=== PATIENT | female | born 1970 | race Caucasian/White ===

== ENCOUNTER → 2018-08-04 14:16 | Outpatient (CLI) | payer OTHER, SELFPAY ==
[2018-08-04 16:33] LABS: TSH w/ Reflex to FT4 4.86 uIU/mL (0.47-4.68)
[2018-08-04 17:57] LABS: Free T4, Direct Thyroxine 1.07 ng/dL (0.78-2.19)
== END ==
PROVIDERS: PCP Family Medicine; Visit Provider Family Medicine
DX: E03.9 Hypothyroidism, unspecified (principal)
CPT/HCPCS: 36415; 84439; 84443

== ENCOUNTER → 2018-09-24 14:06 | Outpatient (CLI) | payer OTHER, SELFPAY ==
[2018-09-24 15:25] LABS: TSH w/ Reflex to FT4 5.44 uIU/mL (0.47-4.68)
[2018-09-24 16:54] LABS: Free T4, Direct Thyroxine 1.01 ng/dL (0.78-2.19)
== END ==
PROVIDERS: PCP Family Medicine; Visit Provider Family Medicine
DX: E05.90 Thyrotoxicosis, unspecified without thyrotoxic crisis or storm (principal)
CPT/HCPCS: 36415; 84439; 84443

== ENCOUNTER → 2018-12-01 07:42 | Outpatient (CLI) | payer OTHER, SELFPAY ==
--- NOTE | 2018-12-01 07:43 | DI.MG.S_ITS ---
BILATERAL DIGITAL SCREENING MAMMOGRAM 3D/2D WITH CAD: 12/01/2018 CLINICAL: Routine screening. Comparison is made to exams dated: 05/23/2012 mammogram, 05/18/2011 mammogram, and 10/15/2006 mammogram - [facility]. The tissue of both breasts is heterogeneously dense. This may lower the sensitivity of mammography. Current study was also evaluated with a Computer Aided Detection (CAD) system. No significant masses, calcifications, or other findings are seen in either breast. There has been no significant interval change. IMPRESSION: NEGATIVE There is no mammographic evidence of malignancy. A 1 year screening mammogram is recommended. This exam was interpreted at Station ID: [id number]. NOTE: For mammograms, a report in lay terms will be sent to the patient. Approximately 15% of breast malignancies will not be visualized mammographically. In the management of a palpable breast mass, a negative mammogram must not discourage biopsy of a clinically suspicious lesion. Electronically Signed By: Jose Antonio cope/shant:12/01/2018 11:26:56 letter sent: Normal Exam ACR BI-RADS Category 1: Negative 3341F
== END ==
PROVIDERS: PCP Family Medicine; Visit Provider Family Medicine
DX: Z12.31 Encounter for screening mammogram for malignant neoplasm of breast (principal)
CPT/HCPCS: 77063; 77067

== ENCOUNTER → 2019-01-28 16:55 | Outpatient (CLI) | payer OTHER, SELFPAY ==
[2019-01-28 18:02] LABS: TSH w/ Reflex to FT4 3.97 uIU/mL (0.47-4.68)
== END ==
PROVIDERS: PCP Family Medicine; Visit Provider Family Medicine
DX: E03.9 Hypothyroidism, unspecified (principal)
CPT/HCPCS: 36415; 84443

== ENCOUNTER → 2020-06-02 16:41 | Outpatient (CLI) | payer OTHER, SELFPAY ==
[2020-06-02 18:28] LABS: TSH w/ Reflex to FT4 2.68 uIU/mL (0.47-4.68)
== END ==
PROVIDERS: PCP Family Medicine; Referring Provider Family Medicine; Visit Provider Family Medicine
DX: E03.9 Hypothyroidism, unspecified (principal)
CPT/HCPCS: 36415; 84443

== ENCOUNTER 2021-09-11 12:20 | Emergency (ER) | payer OTHER, SELFPAY ==
[2021-09-11 12:27] VITALS: BP 137/61; PULSE 78; RESP 14; TEMP 36.7; O2SAT 99; BMI 27.3
--- NOTE | 2021-09-11 12:33 | DI.RAD.S_ITS ---
PROCEDURE: XR KNEE LT 3V INDICATIONS: knee pain after jumping TECHNIQUE: 3 views of the knee were acquired. COMPARISON: [facility], , KNEE 3V LEFT, 02/13/2008, 18:00. FINDINGS: Bones: There is prior ACL repair with anatomic left knee alignment. No gross hardware loosening or failure. Mild tricompartmental osteoarthritis is seen more prominent in medial femoral tibial compartment. Soft tissues: No significant joint effusion. No suspicious soft tissue calcifications. IMPRESSION: Prior ACL repair. Anatomic left knee alignment. No gross hardware complication. Mild tricompartmental osteoarthritis more prominent in medial femoral tibial compartment. No acute fracture or dislocation. No significant joint effusion. Dictated by: Robert Sloan M.D. on 09/11/2021 at 13:05 Approved by: Robert Sloan M.D. on 09/11/2021 at 13:07
--- NOTE | 2021-09-11 20:11 | ED_ITS ---
HPI - Extremity Injury (Lower) <Barbara Sigala PA-C - Last Filed: 09/11/21 20:18> General Chief Complaint: Extremity Injury, Lower Stated Complaint: injured knee Left Time Seen by Provider: 09/11/21 15:27 Source: patient Mode of arrival: Ambulatory History of Present Illness HPI Narrative: Patient states that her knee buckled 3 days ago when she was walking, she heard some snapping sounds. Patient endorses pain in the medial aspect of the knee and popliteal region. Patient also endorses pain when flexing the knee. Patient endorses she is still able to bear weight and walk on the knee. Patient denies numbness, tingling, weakness. Related Data Home Medications Medication Instructions Recorded Confirmed multivitamin (Multiple Vitamins) 1 tab PO QDAY #0 03/04/17 09/11/21 Previous Rx's Medication Instructions Recorded gabapentin 100 mg capsule See Rx Instructions PO BID #270 cap 06/07/20 levothyroxine 100 mcg tablet See Rx Instructions .ROUTE 08/09/21 .COMPLEX #90 tab Allergies Allergy/AdvReac Type Severity Reaction Status Date / Time No Known Drug Allergies Allergy Verified 09/11/21 12:32 Review of Systems <Barbara Sigala PA-C - Last Filed: 09/11/21 20:18> Review of Systems ROS Unobtainable: All systems reviewed & are unremarkable except as noted in HPI and below Constitutional Constitutional: Denies chills, Denies fatigue, Denies fever(s), Denies frequent falls, Denies lethargy and Denies weakness Eyes Eyes: Denies change in vision, Denies eye discharge, Denies irritation and Denies loss of vision ENT Ears, Nose, Mouth, and Throat: Denies change in voice, Denies dizziness, Denies neck pain, Denies sore throat and Denies throat swelling Cardiovascular Cardiovascular: Denies chest pain, Denies irregular heart rhythm, Denies lightheadedness, Denies palpitations, Denies dyspnea, Denies dyspnea on exertion and Denies orthopnea Respiratory Respiratory: Denies cough, Denies dyspnea, Denies dyspnea on exertion and Denies wheezing Gastrointestinal Gastrointestinal: Denies abdominal pain, Denies change in bowel habits, Denies diarrhea, Denies nausea and Denies vomiting Genitourinary Genitourinary: Denies hematuria, Denies flank pain, Denies urinary incontinence and Denies urinary urgency Musculoskeletal Musculoskeletal: Denies back pain, Denies muscle weakness, Denies neck pain, Denies numbness and Denies tingling Comments: Left knee pain Integumentary/Breasts Skin/Breast: Denies pruritus, Denies erythema, Denies rash and Denies wounds Neurologic Neurologic: Denies behavioral changes, Denies confusion, Denies dizziness, Denies frequent falls, Denies loss of vision, Denies numbness, Denies tingling and Denies weakness Psychiatric Psychiatric: Denies anxiety, Denies behavioral changes, Denies confusion, Denies depression, Denies homicidal ideation and Denies suicidal ideation Endocrine Endocrine: Denies fatigue, Denies flushing and Denies palpitations Hematologic/Lymphatic Hematologic/Lymphatic: Denies easy bruising Allergic/Immunologic Allergic/Immunologic: Denies urticaria, Denies throat swelling and Denies wheezing Patient History <Barbara Sigala PA-C - Last Filed: 09/11/21 20:18> Medical History Arthritis Chicken pox Hypothyroidism Irregular menstrual cycle Overweight (BMI 25.0-29.9) Seborrheic keratosis Spontaneous vaginal delivery Surgical History S/P ACL repair Family History Brother Age: 54 Skin cancer Father Coronary artery disease, angina presence unspecified, unspecified vessel or lesion type, unspecified whether [place] or transplanted heart Hypertension High cholesterol Grandfather Heart disease Grandmother Heart disease Mother Age: 78 Smoker Emphysema, unspecified Heart disease Grandfather Heart disease Grandmother Heart disease Social History marital status: number of children: 2 household members: family lives independently: Yes education level: master's degree 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[employer]) Smoking Status: Never smoker alcohol intake: current (rare) substance use type: does not use Smoking Status: Never smoker alcohol intake frequency: 0-2 drinks per day Substance Use Type: does not use Exam <Barbara Sigala PA-C - Last Filed: 09/11/21 20:18> Initial Vital Signs Initial Vital Signs: Vital Signs Temperature 98.1 F 09/11/21 12:27 Pulse Rate 78 09/11/21 12:27 Respiratory Rate 14 09/11/21 12:27 Blood Pressure 137/61 09/11/21 12:27 Pulse Oximetry 99 09/11/21 12:27 Const General: cooperative, healthy appearing and comfortable [facility] Head: normal to inspection Eyes General: appearance normal, both eyes and all related structures Neck Neck: normal visual inspection Resp Effort & Inspection: normal respiratory effort Auscultation: clear to auscultation bilaterally Cardio Rate: regular rate Rhythm: regular rhythm Skin General: no rashes or lesions noted Neuro General: patient alert, patient awake and patient oriented x3 Extrem Other: Tenderness to palpation of medial aspect of left knee and popliteal region. No swelling, deformity, bruising appreciated. Patient is neurovascularly intact. Gait is normal. <Patricia Watkins DO - Last Filed: 09/12/21 13:49> Initial Vital Signs Initial Vital Signs: Vital Signs Temperature 98.1 F 09/11/21 12:27 Pulse Rate 78 09/11/21 12:27 Respiratory Rate 14 09/11/21 12:27 Blood Pressure 137/61 09/11/21 12:27 Pulse Oximetry 99 09/11/21 12:27 Course <Barbara Sigala PA-C - Last Filed: 09/11/21 20:18> Orders Ordered: ED Orders 09/11/21 12:33 XR knee LT 3V Stat Vital Signs Vital signs: Vital Signs - 8 hr 09/11/21 12:27 Temperature 98.1 F Pulse Rate 78 Respiratory Rate 14 Blood Pressure 137/61 Pulse Oximetry 99 <Patricia Watkins DO - Last Filed: 09/12/21 13:49> Orders Ordered: ED Orders 09/11/21 12:33 XR knee LT 3V Stat Vital Signs Vital signs: Vital Signs - 8 hr 09/11/21 12:27 Temperature 98.1 F Pulse Rate 78 Respiratory Rate 14 Blood Pressure 137/61 Pulse Oximetry 99 MDM - Extremity Injury (Lower) <WILLI Vang Last Filed: 09/11/21 20:18> Imaging Data Extremity x-ray #1: Radiologist's Impression: PROCEDURE:? XR KNEE LT 3V ? INDICATIONS:? knee pain after jumping ? TECHNIQUE:? 3 views of the knee were acquired.? ? COMPARISON:? [facility], CR, KNEE 3V LEFT, 02/13/2008, 18:00. ? FINDINGS:? ? Bones:? There is prior ACL repair with anatomic left knee alignment.? No gross hardware loosening or failure.? Mild tricompartmental osteoarthritis is seen more prominent in medial femoral tibial compartment. ? Soft tissues:? No significant joint effusion.? No suspicious soft tissue calcifications.? IMPRESSION:? Prior ACL repair.? Anatomic left knee alignment.? No gross hardware complication.? Mild tricompartmental osteoarthritis more prominent in medial femoral tibial compartment.? No acute fracture or dislocation.? No significant joint effusion. ? ? Dictated by: Robert Sloan M.D. on 09/11/2021 at 13:05 ? ? Approved by: Robert Sloan M.D. on 09/11/2021 at 13:07 ? MDM Narrative Medical decision making narrative: Patient states that her knee buckled 3 days ago when she was walking, she heard some snapping sounds. Concern for fractures versus dislocations versus sprain/strain. Will order x-rays. Will reassess. X-ray negative for acute findings. Patient's symptoms likely due to sprain/strain. Discharged patient home with ED return precautions and PCP, ortho follow-up. Patient verbalized understanding. Discharge Plan Departure Patient Disposition: Home Clinical Impression: Acute knee pain Instructions: DI for Knee Sprain Activity Restrictions/Additional Instructions: You were evaluated in the ED today for left-sided knee pain. Your x-ray did not show any evidence of fractures or dislocations. Your symptoms are likely due to a knee sprain. You may continue to rest, ice/warmth, use an Romie compression bandage, elevate your knee. You may continue to take Tylenol and ibuprofen for symptoms. Please follow-up with your PCP, consider physical therapy. If your symptoms do not resolve, you may follow-up with [facility] at [phone]. Return to the ED if you have worsening symptoms, numbness, tingling, weakness. Prescriptions: No Action gabapentin 100 mg capsule See Rx Instructions PO BID Qty: 270 3RF Rx Instructions: Take 1 tablet in the morning and 2 tablets at bedtime PO twice a day; multivitamin [Multiple Vitamins] 1 EACH tablet 1 tab PO QDAY Qty: 0 0RF levothyroxine 100 mcg tablet See Rx Instructions .ROUTE .COMPLEX Qty: 90 0RF Dose Instruction: take 1 tablet by mouth daily Rx Instructions: take 1 tablet by mouth daily Referrals: Danyelle Canada DO [Primary Care Provider] - <Patricia Watkins DO - Last Filed: 09/12/21 13:49> Cosign ED Attending Ayseature Attestation: I was immediately available in the department for consultation. Documentation has been reviewed.
== END 2021-09-11 16:57 | disposition home or self-care (01) ==
PROVIDERS: Emergency Provider Student in an Organized Health Care Education/Training Program; PCP Family Medicine
DX: M25.562 Pain in left knee (principal)
CPT/HCPCS: 73562; 99283

== ENCOUNTER → 2021-10-06 09:38 | Outpatient (CLI) | payer OTHER, SELFPAY ==
--- NOTE | 2021-10-06 | DI.MRI.S_ITS ---
PROCEDURE: MR KNEE LT WO CON INDICATIONS: Sprain of anterior cruciate ligament of left knee, TECHNIQUE: Noncontrast sagittal PD fast spin echo and T2 fast spin echo with fat saturation, sagittal 3-D FLASH with fat saturation; coronal T1 spin echo and PD fast spin echo with fat saturation, and axial PD fast spin echo with fat saturation through the knee. COMPARISON: [facility], MR, KNEE WITHOUT CONTRAST, 12/18/2012, 18:15. FINDINGS: Image quality: Excellent. Menisci: Deficiency of the medial, posterior horn with surfacing signal, compatible with meniscal tear. The lateral meniscus appears intact. Cruciate ligaments: T2 hyperintense signal within the anterior cruciate ligament graft, decreased in caliber compared to the prior study. The posterior cruciate ligament is intact. Medial structures: The medial collateral ligament appears intact. The visualized portions of the pes anserinus tendons appear normal. Lateral structures: The lateral collateral ligament complex appears intact. The popliteus tendon appears normal. The iliotibial band appears normal. Anterior structures: The quadriceps and patellar tendons appear intact. Patellar alignment is normal. No femoral trochlear dysplasia or ventral trochlear prominence. No edema in the infrapatellar fat pad. Bones and cartilage: T2 hyperintense signal underlying the patellar apex/lateral facet, most consistent with osteochondral injury, measuring 4.9 mm patchy T2 hyperintense/T1 hypointense signal in the posterior aspect of the lateral tibial plateau, compatible with contusion. No distinct fracture line. The cartilage of the medial and lateral femorotibial compartments, as well as the patellofemoral compartment, appears normal in thickness. Joint space: Small knee joint fluid. A 3.4 x 3.3 x 7 cm T2 hyperintense signal is seen in the popliteal fossa, most consistent with a Mayfield cyst new line. Normal appearing synovial plicae are incidentally noted. IMPRESSION: 1. Posterior horn, medial meniscal tear. 2. Edema within the ACL graft, which may reflect acute injury versus degeneration. 3. Small joint effusion. 4. Contusion in the posterior aspect of the lateral tibial plateau. 5. Cystic-appearing lesion in the popliteal fossa, compatible with a Mayfield cyst. 6. Osteochondral injury of the patella as detailed above. 7. Patellar chondromalacia. Dictated by: Srini Crawley M.D. on 10/06/2021 at 10:41 Approved by: Srini Crawley M.D. on 10/06/2021 at 10:56
== END ==
PROVIDERS: PCP Family Medicine; Referring Provider Orthopaedic Surgery; Visit Provider Orthopaedic Surgery
DX: S83.512A Sprain of anterior cruciate ligament of left knee, initial encounter (principal); S83.242A Other tear of medial meniscus, current injury, left knee, initial encounter; M25.40 Effusion, unspecified joint; M22.42 Chondromalacia patellae, left knee
CPT/HCPCS: 73721

== ENCOUNTER → 2021-11-09 16:26 | Outpatient (CLI) | payer OTHER, SELFPAY ==
[2021-11-09 17:29] LABS: Add Manual Diff / Slide Review NO; Basophils Absolute Auto 0 /uL (0-100); Basophils Percent Auto 0.8 % (0-2); Eosinophils Absolute Auto 100 /uL (0-450); Eosinophils Percent Auto 2.6 % (2-4); Hematocrit 37.7 % (36-46); Hemoglobin 12.8 g/dL (12.0-16.0); Lymphocytes Absolute Auto 1300 /uL (1100-4500); Lymphocytes Percent Auto 23.8 % (25-40); Mean Corpuscular Hemoglobin 30.1 PG (26-34); Mean Corpuscular Volume 88.6 fL (80-100); Monocytes Absolute Auto 400 /uL (0-900); Monocytes Percent Auto 6.4 % (3-14); Neutrophils Absolute Auto 3700 /uL (1500-7000); Neutrophils Percent Auto 66.4 % (50-75); Platelet Count 281 X10^3/uL (150-400); Red Blood Cell Count 4.26 X10^6/uL (4.0-5.2); Red Cell Distribution Width 13.3 % (11.6-14.8); White Blood Cell Count 5.5 X10^3/uL (4.5-11.0)
[2021-11-09 18:00] LABS: Alanine Aminotransferase 20 IU/L (<35); Albumin 4.5 g/dL (3.5-5.0); Albumin Globulin Ratio 1.6 (1.0-2.8); Alkaline Phosphatase 64 U/L (38-126); Aspartate Aminotransferase 36 IU/L (14-36); BUN Creatinine Ratio 23.7 (6-22); Bilirubin Total 0.5 mg/dL (0.2-1.3); Blood Urea Nitrogen 27 mg/dL (7-17); Calcium 9.7 mg/dL (8.4-10.2); Carbon Dioxide 29 mmol/L (22-32); Chloride 107 mmol/L (98-107); Cholesterol 177 mg/dL (140-199); Estimated Glomerular Filt Rate 50.5 mL/min (>60); Globulin 2.9 g/dL (1.7-4.1); Glucose 99 mg/dL (70-100); HDL Cholesterol 64 mg/dL (40-60); HEMOLYSIS < 15 (0-50); LDL Cholesterol Calculated 99 mg/dL (<100); Potassium 4.1 mmol/L (3.4-5.1); Sodium 139 mmol/L (137-145); Total Protein 7.4 g/dL (6.3-8.2); Triglycerides 70 mg/dL (35-150)
[2021-11-09 18:32] LABS: Thyroid Stimulating Hormone 3.21 uIU/mL (0.47-4.68)
[2021-11-09 18:36] LABS: Rubella Antibody IgG 48.5 IU/mL (>15)
[2021-11-10 04:40] LABS: Rubeola Measles IgG 27.5 AU/mL (Immune >16.4)
== END ==
PROVIDERS: PCP Family Medicine; Referring Provider Family Medicine; Visit Provider Family Medicine
DX: E03.9 Hypothyroidism, unspecified (principal); Z01.84 Encounter for antibody response examination; Z92.29 Personal history of other drug therapy
CPT/HCPCS: 36415; 80053; 80061; 84443; 85025; 86735; 86762; 86765

== ENCOUNTER → 2021-12-16 12:19 | Outpatient (CLI) | payer OTHER, SELFPAY ==
[2021-12-16 13:05] LABS: Alanine Aminotransferase 22 IU/L (<35); Albumin 4.8 g/dL (3.5-5.0); Albumin Globulin Ratio 1.7 (1.0-2.8); Alkaline Phosphatase 67 U/L (38-126); Aspartate Aminotransferase 36 IU/L (14-36); BUN Creatinine Ratio 23.7 (6-22); Bilirubin Total 0.5 mg/dL (0.2-1.3); Blood Urea Nitrogen 32 mg/dL (7-17); Calcium 9.7 mg/dL (8.4-10.2); Carbon Dioxide 24 mmol/L (22-32); Chloride 105 mmol/L (98-107); Estimated Glomerular Filt Rate 41.5 mL/min (>60); Globulin 2.8 g/dL (1.7-4.1); Glucose 86 mg/dL (70-100); HEMOLYSIS < 15 (0-50); Potassium 4.7 mmol/L (3.4-5.1); Sodium 142 mmol/L (137-145); Total Protein 7.6 g/dL (6.3-8.2)
== END ==
PROVIDERS: PCP Family Medicine; Referring Provider Family Medicine; Visit Provider Family Medicine
DX: N28.9 Disorder of kidney and ureter, unspecified (principal)
CPT/HCPCS: 36415; 80053

== ENCOUNTER → 2021-12-30 11:38 | Outpatient (CLI) | payer OTHER, SELFPAY ==
[2021-12-30 11:55] LABS: Appearance Urine UA CLEAR; Bilirubin Urine UA NEGATIVE (NEGATIVE); Color Urine UA YELLOW; Glucose Urine UA TRACE g/dL (Negative); Ketones Urine UA NEGATIVE (NEGATIVE); Leukocyte Esterase Urine UA NEGATIVE (NEGATIVE); Nitrite Urine UA NEGATIVE (Negative); Occult Blood Urine UA NEGATIVE (Negative); Protein Urine UA NEGATIVE (Negative); Urobilinogen Urine UA 0.2 E.U./dL (0.2)
[2021-12-30 12:07] LABS: Bacteria Urine Occasional (0-1); Culture Indicated Urine Cult Not Indicated; Mucus Urine 1+ (Negative); RBC Urine 0-1/HPF (0-5/HPF); Squamous Epithelial Cell Urine 0-1 /HPF (0-5/HPF); WBC Urine 0-1/HPF (0-5/HPF); pH Urine UA 6.5 (4.5-8.0)
== END ==
PROVIDERS: PCP Family Medicine; Referring Provider Family Medicine; Visit Provider Family Medicine
DX: R39.9 Unspecified symptoms and signs involving the genitourinary system (principal)
CPT/HCPCS: 81001

== ENCOUNTER → 2022-01-25 10:25 | Outpatient (CLI) | payer OTHER, SELFPAY ==
[2022-01-25 11:13] VITALS: BMI 28.8
--- NOTE | 2022-01-25 14:48 | DIET.CONS ---
Dietary Consultation Note Assessment: 51y [address] visit for help with abnormal weight gain (+15# in 18mo) and hypothyroidism. Pt has 6 visits to use through [place]. 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 Pt weight stable most of life, most comfortable at 170#. Pt gained 5# in early covid when gym shut down. Does not know if weight gain is from increased muscle mass, menopause, or excessive caloric intake. Pt with poor sleep quality, having some bloating in evenings and hot flashes several times per night which keep her up for 30 minutes with each occurrence. Pt also scheduled for renal ultrasound as past two labs this year showing elevated BUN and Creatinine and low eGFR. Pt endorses not drinking enough water and relying on supplemental protein products (bars and powders). Since nurse called with f/u labs, pt has been drinking 64oz plain water daily. Ht: 5'8 Wt: 190# BMI: 28.8 UBW: 170# Usual Day: thyroid meds and gabapentin right away Coffee c scoop protein powder B: 2 eggs cooked in cast iron c avocado oil, sometimes overnight oats pure protein bar L (2pm): starving by this point: leftovers (protein veg, carb like couscous and black rice) cooked veggies sometimes salads 350kcals pure protein bar gym after work 630 eating rest of meal from 7pm to bedtime+ D: palm size rotisserie chicken, flank steak, chicken burgers, sometimes black or kidney beans bedtime snack is tupperware of leftovers asleep by midnight egg scrambles on weekends Protein Intake: 2-3 scoops protein powder 24g each 2-3 pure protein bars 20g each 2 eggs 6g each palm size protein 30-40g RD Impression: Pt with excellent physical activity and nutrition experiencing some weight gain and bloating likely related to consuming majority of kcals at night, irregular and fast eating, overconsumption of sugar alcohols, respectively. Pt renal function may be related to excessive protein intake and inadequate hydration as pt consuming twice the recommended protein intake and endorses not getting enough water, often reliant on coffee for fluids. Nutrition Diagnosis: abnormal weight gain r/t multifactorial aeb pt +15# in 18mo despite regular physical activity and good nutrition, pt reports erratic eating, consuming most calories after 7pm, eating to avoid evening work, hx hypothyroid. Interventions: 1. Introduced pt to hunger scale. Instructed pt to eat at 3 and stop at 7 whenever possible. Problem solve barriers to attaining good meal timing. 2. Discussed appropriate protein intake daily and possible effects to kidneys. Discussed limiting pro powder to 2 scoops and pro bars to 2/d. 3. Talked about habit of eating to avoid evening work. Discussed option of fizzy water or tea as calorie free way to break up worktime. 4. Educated pt on sugar alcohols effects of bloating. Pt consuming 14-21g/d in protein bars which likely contributing to bloating. 5. Discussed hot flashes, provided pt handout from [employer] database on Black Cohosh including drug and food interactions. 6. Discussed importance of hitting fiber targets for day to help with satiety and good digestion. Encouraged pt to incorporate lentils into diet. Provided Power Bowl and Lentil soup recipes. EER: 25g fiber, 80-100g protein, 1800kcals Monitoring/Evaluations: f/u in 4w Electronically Signed by: Tayla Goel 01/25/22 14:48 Clinical Dietitian [id number] [place] [address]
== END ==
PROVIDERS: PCP Family Medicine; Referring Provider Family Medicine; Visit Provider Family Medicine
DX: R63.5 Abnormal weight gain (principal); E03.9 Hypothyroidism, unspecified; Z71.3 Dietary counseling and surveillance; Z68.28 Body mass index [BMI] 28.0-28.9, adult
CPT/HCPCS: 97802

== ENCOUNTER → 2022-02-02 08:08 | Outpatient (CLI) | payer OTHER, SELFPAY ==
--- NOTE | 2022-02-02 08:09 | DI.US.S_ITS ---
PROCEDURE: US RENAL COMPLETE INDICATIONS: abnormal renal labs TECHNIQUE: Real-time scanning was performed of the kidneys and bladder, with image documentation. COMPARISON: None. FINDINGS: Kidneys: Kidneys are normal in size. Right kidney measures 10.2 cm long; left kidney measures 10.7 cm long. Right renal cortical thickness is 1.6 cm; left renal cortical thickness is 2 cm. Renal cortical echotexture is within normal limits. No hydronephrosis or nephrolithiasis. No suspicious solid mass lesions. Bladder: Pre-void bladder volume is 133 mL. Post-void residual is 0 mL. Pre-void images demonstrate no intraluminal masses or stones. On pre-void images, both ureteral jets are noted with color Doppler interrogation. (Of note, ureteral jets may not be detectable in up to 25% of cases due to insufficient differences in specific gravity between ureteral and bladder urine). Miscellaneous: No free pelvic fluid. IMPRESSION: No sonographic abnormality identified. Dictated by: Howard Donohue M.D. on 02/02/2022 at 22:02 Approved by: Howard Donohue M.D. on 02/02/2022 at 22:04
== END ==
PROVIDERS: PCP Family Medicine; Referring Provider Family Medicine; Visit Provider Family Medicine
DX: R39.9 Unspecified symptoms and signs involving the genitourinary system (principal)
CPT/HCPCS: 76770

== ENCOUNTER → 2023-04-26 09:11 | Outpatient (CLI) | payer OTHER, SELFPAY ==
[2023-04-26 09:56] LABS: Add Manual Diff / Slide Review NO; Basophils Absolute Auto 100 /uL (0-100); Basophils Percent Auto 2.2 % (0-2); Eosinophils Absolute Auto 300 /uL (0-450); Eosinophils Percent Auto 7.7 % (2-4); Hematocrit 33.6 % (36-46); Hemoglobin 11.2 g/dL (12.0-16.0); Lymphocytes Absolute Auto 1200 /uL (1100-4500); Lymphocytes Percent Auto 34.7 % (25-40); Mean Corpuscular HGB Conc 33.3 % (30-36); Mean Corpuscular Hemoglobin 29.4 PG (26-34); Mean Corpuscular Volume 88.3 fL (80-100); Monocytes Absolute Auto 300 /uL (0-900); Monocytes Percent Auto 8.5 % (3-14); Neutrophils Absolute Auto 1600 /uL (1500-7000); Neutrophils Percent Auto 46.9 % (50-75); Platelet Count 280 X10^3/uL (150-400); Red Cell Distribution Width 13.6 % (11.6-14.8); White Blood Cell Count 3.4 X10^3/uL (4.5-11.0)
[2023-04-26 10:12] LABS: Alanine Aminotransferase 24 IU/L (<35); Albumin Globulin Ratio 1.5 (1.0-2.8); Alkaline Phosphatase 68 U/L (38-126); Aspartate Aminotransferase 36 IU/L (14-36); BUN Creatinine Ratio 20.6 (6-22); Bilirubin Total 0.3 mg/dL (0.2-1.3); Blood Urea Nitrogen 27 mg/dL (7-17); Calcium 8.6 mg/dL (8.4-10.2); Carbon Dioxide 26 mmol/L (22-32); Chloride 107 mmol/L (98-107); Estimated Glomerular Filt Rate 49 mL/min (>60); Globulin 2.7 g/dL (1.7-4.1); Glucose 86 mg/dL (70-100); HEMOLYSIS < 15 (0-50); Potassium 4.4 mmol/L (3.4-5.1); Sodium 139 mmol/L (137-145); Total Protein 6.7 g/dL (6.3-8.2)
[2023-04-26 10:26] LABS: Free T3, Triiodothyronine Free 4.13 pg/mL (2.77-5.27); Free T4, Direct Thyroxine 1.34 ng/dL (0.78-2.19)
[2023-04-26 10:39] LABS: Thyroid Stimulating Hormone 6.91 uIU/mL (0.47-4.68)
== END ==
PROVIDERS: PCP Physician Assistant; Referring Provider Physician Assistant; Visit Provider Physician Assistant
DX: E03.9 Hypothyroidism, unspecified (principal); E66.3 Overweight; N92.0 Excessive and frequent menstruation with regular cycle; Z12.11 Encounter for screening for malignant neoplasm of colon
CPT/HCPCS: 36415; 80053; 84439; 84443; 84481; 85025

== ENCOUNTER → 2023-05-18 11:23 | Outpatient (CLI) | payer OTHER, SELFPAY ==
--- NOTE | 2023-05-18 11:24 | DI.MG.S_ITS ---
BILATERAL DIGITAL SCREENING MAMMOGRAM 3D/2D WITH CAD: 05/18/2023 CLINICAL: Routine screening. Comparison is made to exams dated: 12/01/2018 mammogram, 05/23/2012 mammogram, and 05/18/2011 mammogram - [facility]. Both breasts are heterogeneously dense, which may obscure small masses (category c / 51-75% glandular tissue). Current study was also evaluated with a Computer Aided Detection (CAD) system. No significant masses, calcifications, or other findings are seen in either breast. There has been no significant interval change. IMPRESSION: NEGATIVE There is no mammographic evidence of malignancy. A 1 year screening mammogram is recommended. Based on the Tyrer Cuzick model (a risk assessment model) the patient's lifetime risk is 11.0% and her 10 year risk is 2.8%. According to the ACR, ACS, and NCCN guidelines, an annual breast MRI exam along with mammogram is recommended if the patient's lifetime risk is 20% or greater. This exam was interpreted at Station ID: [id number]. NOTE: For mammograms, a report in lay terms will be sent to the patient. Approximately 15% of breast malignancies will not be visualized mammographically. In the management of a palpable breast mass, a negative mammogram must not discourage biopsy of a clinically suspicious lesion. Electronically Signed By: Jose Antonio cope/shant:05/20/2023 07:39:05 letter sent: Normal Exam ACR BI-RADS Category 1: Negative 3341F
== END ==
PROVIDERS: PCP Physician Assistant; Referring Provider Physician Assistant; Visit Provider Physician Assistant
DX: Z12.31 Encounter for screening mammogram for malignant neoplasm of breast (principal)
CPT/HCPCS: 77063; 77067

== ENCOUNTER → 2023-07-10 10:13 | Outpatient (CLI) | payer OTHER, SELFPAY ==
[2023-07-10 12:38] LABS: TSH w/ Reflex to FT4 0.63 uIU/mL (0.47-4.68)
== END ==
PROVIDERS: PCP Physician Assistant; Referring Provider Physician Assistant; Visit Provider Physician Assistant
DX: R79.89 Other specified abnormal findings of blood chemistry (principal); E03.9 Hypothyroidism, unspecified
CPT/HCPCS: 36415; 84443

== ENCOUNTER 2023-08-29 07:13 | Day surgery (SDC) | payer OTHER, SELFPAY ==
--- NOTE | 2023-08-29 | PATH_ITS ---
[facility] Accession Number: [id number] No. of containers..02 Tissue . 01 Material submitted: . PART A: colon - CECAL POLYPS PART B: colon - SIGMOID POLYPS . 01 Diagnosis: A. Cecal Polyps: Tubular adenoma x1. Colonic mucosa with no diagnostic abnormality, consistent with polypoid redundancy x1. . B. Sigmoid Colon Polyps: Tubular adenoma x2. MRV 09/10/2023 1306 Local . 01 Electronically signed: . Osbaldo Aguayo MD, PhD, Pathologist NPI- [id number] . 01 Gross description: . Part A: CECAL POLYPS: Received in formalin is 2 fragment(s) of nair, soft tissue measuring 0.3 x 0.3 x 0.2 cm to 0.3 x 0.2 x 0.2 cm submitted entirely in 1 cassette(s) Part B: SIGMOID POLYPS: Received in formalin is 2 fragment(s) of nair, soft tissue measuring 0.4 x 0.4 x 0.2 cm to 0.2 x 0.1 x 0.1 cm submitted entirely in 1 cassette(s) /AAY 08/30/2023 0447 Local . 01 Pathologist provided ICD-10: D12.0, D12.5 . 01 CPT . 517738, [id number] Specimen Comment: A courtesy copy of this report has been sent to [phone] Performed at: [facility] [address] [place] [address], [place], [place] [id number] MD Prieto Plaza MD Phone: [phone]
[2023-08-29] MEDS: LACTATED RINGERS 1,000 ML 42 ML IV (07:20)
[2023-08-29 07:26] VITALS: BMI 28.1
[2023-08-29 07:48] VITALS: BP 119/75; PULSE 62; RESP 16; TEMP 36.4; O2SAT 97
--- NOTE | 2023-08-29 08:02 | PM.HP.1 ---
History of Present Illness History of Present Illness Date Patient Seen: 08/29/23 Time Patient Seen: 08:02 Chief complaint: Colonoscopy Narrative: Diana is a 53-year-old woman who is here for colonoscopy. She has never had 1 before. She denies melena and rectal bleeding. She has an uncle and a cousin with colon cancer. [facility] Medical History Arthritis Chicken pox Hypothyroidism Irregular menstrual cycle Overweight (BMI 25.0-29.9) Seborrheic keratosis Spontaneous vaginal delivery Surgical History S/P ACL repair Family History Brother Age: 56 Skin cancer Father Coronary artery disease, angina presence unspecified, unspecified vessel or lesion type, unspecified whether [place] or transplanted heart Hypertension High cholesterol Grandfather Heart disease Grandmother Heart disease Mother Age: 80 Smoker Emphysema, unspecified Heart disease Grandfather Heart disease Grandmother Heart disease Social History marital status: number of children: 2 household members: family lives independently: Yes education level: master's degree 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[employer]) Smoking Status: Never smoker alcohol intake: never substance use type: does not use Meds Home Medications and Allergies Home Medications Medication Instructions Recorded Confirmed Type multivitamin (Multiple Vitamins 1 tab PO QDAY ##0 03/04/17 08/29/23 History tablet) levothyroxine 150 mcg tablet 150 mcg PO DAILY #90 tabs 07/10/23 08/29/23 Rx Allergies Allergy/AdvReac Type Severity Reaction Status Date / Time No Known Drug Allergies Allergy Verified 08/29/23 07:24 Exam Vital Signs (past 8 hours): - 08/29/23 07:48 Temperature 97.6 F Pulse Rate 62 Respiratory Rate 16 Blood Pressure 119/75 Pulse Oximetry 97 Oxygen Delivery Method Room Air Oxygen Delivery Method Room Air Const General: healthy appearing Assessment & Plan Assessment and plan (1) Colon cancer screening: Status: Acute Plan Ana Maria is a 53-year-old woman here for colonoscopy for colon cancer screening. We reviewed the risks and benefits of colonoscopy for colon cancer screening and she would like to proceed.
[2023-08-29 08:55] VITALS: BP 97/51; PULSE 57; RESP 23; TEMP 36.3; O2SAT 97
[2023-08-29 09:00] VITALS: BP 97/67; PULSE 60; RESP 18; O2SAT 100
--- NOTE | 2023-08-29 09:00 | PM.OP.COLON ---
Operative Date/Time/Diagnoses Date of procedure: 08/29/23 Time of procedure: 09:01 Pre-op diagnosis: Colon cancer screening Post-op diagnosis: same Procedure & Clinicians Study performed: Colonoscopy Same procedure as scheduled: Yes Surgeon: Chacorta Chauhan Procedure Notes Procedure in detail: Surgeon: Chacorta Chauhan MD Anesthesia: Cecile De Los Santos OBSTETRIC ANAESTHETIST Procedure: The patient was brought to the endoscopy suite, placed in left lateral decubitus position. The patient was connected to monitoring devices. A time-out was performed. Sedation was administered. Once the patient was adequately sedated, a digital rectal exam was performed and was normal. The scope was then inserted and advanced to the cecum where the appendiceal orifice was identified and photographed. The scope was then slowly withdrawn over greater than 6 minutes. The mucosa was thoroughly inspected. There was a 5 mm polyp at the appendiceal orifice and another 5 mm polyp in the upper cecum. Both were removed with cold snare and sent together as ?cecal polyps?. There were 2 5 mm polyps in the sigmoid colon removed and sent together as ?sigmoid polyps?. The scope was retroflexed in the rectum. No other abnormalities were seen. The scope was straightened and removed. The patient was awakened and brought to recovery. Scope withdrawal time: 24 minutes Sedation time: 32 minutes EBL: 5 mL Findings: 2 5 mm polyps in the cecum and 2 5 mm polyps in the sigmoid colon Post-procedure Disposition: PACU
[2023-08-29 09:05] VITALS: BP 107/64; PULSE 60; RESP 13; O2SAT 100
[2023-08-29 09:20] VITALS: BP 113/75; PULSE 60; RESP 12; TEMP 36.1; O2SAT 100
== END 2023-08-29 09:28 | disposition home or self-care (01) ==
PROVIDERS: PCP Physician Assistant; Referring Provider Surgery; Visit Provider Surgery
PROC: 0DJD8ZZ Inspection of Lower Intestinal Tract, Via Natural or Artificial Opening Endoscopic (ICD-10-PCS; CPT 45378; principal; 2023-08-29 08:15)
DX: Z12.11 Encounter for screening for malignant neoplasm of colon (principal); D12.5 Benign neoplasm of sigmoid colon; K63.5 Polyp of colon
CPT/HCPCS: 45385; J2704

== ENCOUNTER → 2023-11-14 08:32 | Outpatient (CLI) | payer OTHER, SELFPAY ==
[2023-11-14 09:43] LABS: BUN Creatinine Ratio 25.3 (6-22); Blood Urea Nitrogen 25 mg/dL (7-17); Carbon Dioxide 28 mmol/L (22-32); Chloride 106 mmol/L (98-107); Estimated Glomerular Filt Rate > 60 mL/min (>60); Glucose 101 mg/dL (70-100); HEMOLYSIS < 15 (0-50); Potassium 4.5 mmol/L (3.4-5.1); Sodium 142 mmol/L (137-145)
[2023-11-14 10:07] LABS: TSH w/ Reflex to FT4 2.71 uIU/mL (0.47-4.68)
[2023-11-14 10:30] LABS: Hemoglobin A1C% w Est Avg Glu 5.2 % (4.0-6.0)
== END ==
PROVIDERS: PCP Family Medicine; Referring Provider Family Medicine; Visit Provider Family Medicine
DX: E03.9 Hypothyroidism, unspecified (principal); E66.3 Overweight; R63.5 Abnormal weight gain; Z87.448 Personal history of other diseases of urinary system
CPT/HCPCS: 36415; 80048; 83036; 84443

== ENCOUNTER 2023-12-31 08:15 | Outpatient (RCR) | payer OTHER, SELFPAY ==
--- NOTE | 2023-12-18 14:58 | PT.OIE ---
Current Diagnoses Lateral epicondylitis, right elbow (12/18/23) Past Medical History (Last Updated 11/10/23 @ 19:42 by Myra Dominguez) Abnormal thyroid stimulating hormone (TSH) level Actinic keratosis (~2019) Arthritis Bilateral carpal tunnel syndrome Chicken pox (~1976) Elbow pain History of kidney disease (~2020) Hypothyroidism (~2008) Irregular menstrual cycle Overweight (BMI 25.0-29.9) Seborrheic keratosis Spontaneous vaginal delivery Past Surgical History (Last Reviewed 11/03/21 @ 20:48 by Danyelle Canada DO) S/P ACL repair Visit Care Team Role Provider Type Cecile Amin DO Attending Provider Physician Family Provider Primary Care Provider Referring Provider Specialty: [facility] Practice Address: [address] [place] [address], [address], [facility] Email: [email or web address] Physical Therapy Initial Evaluation PT-OP-A Visit Information Start: 12/12/23 13:22 Freq: Status: Active Protocol: Document 12/18/23 09:08 [facility] (Rec: 12/18/23 11:20 [facility] [id number]) Out-Patient Physical Therapy Visit Information Visit Information Visit Type Initial Evaluation Visit Start Time 09:52 Visit Stop Time 10:33 Visit Number 1 Number of ENVIRONMENTAL SCIENCE TECHNICIAN Visits 0 PT-OP-B Current Condition Start: 12/12/23 13:22 Freq: Status: Active Protocol: Document 12/18/23 09:08 [facility] (Rec: 12/18/23 11:20 [facility] [id number]) Current Condition History of Current Condition Onset Date 5 months ago Current Complaints R elbow pain History of Current Condition Pt reports she is unsure what started elbow pain. She does do crossfit and one day she was doing a dumblell workout and after felt pain radiating up and down lat arm. A friend of hers is an orthopedic surgeon and dx her w/tennis elbow. She wants to know what to avoid. She has a 12 day trip to [place] where she is goint o be picking up litter ( March 18). She was limiting herself to lower body workouts , had others carryt hings for her, took ibuprofen and iced twice a day and it didn't change anything. The pain level was the same so has returned back to the gym w/o limit except jump rope. She has carpel tunnel B and has numbness/tingling. She had an EMG and that was positive for carpel tunnel and showed no slowing at the elbow. Saw Citlalli Veliz PT after this and was given ROM exercises which improved motion but no help in the pain. She was concerned it was trapped nerve . Notes occ neck pain but has been more often since injury. Treatment Goals Patient/Caregiver Goals do her trip w/o her pain and dec pain PT-OP-C Subjective Start: 12/12/23 13:22 Freq: Status: Active Protocol: Document 12/18/23 09:08 [facility] (Rec: 12/18/23 11:20 [facility] [id number]) Patient Questionnaires Quick Dash- Upper Extremity Quick Dash UE Score 50 OP-PT Pain Assessment Location R elbow Pain Location Details lat elbow at lat epicondyle Description Aching,Sharp Frequency Frequent Radiating Location rare lat upper brachium Other Pain Aggravating Factors no correlation Pain Alleviating Factors None PT-OP-F Manual Assessment Start: 12/12/23 13:22 Freq: Status: Active Protocol: Document 12/18/23 09:08 [facility] (Rec: 12/18/23 11:20 [facility] [id number]) Manual Assessments Joint Mobility Assessment Joint Mobility Assessment dec carpal PA, dec PA radius proximal and distal PT-OP-J Posture/Palpation/Skin Start: 12/12/23 13:22 Freq: Status: Active Protocol: Document 12/18/23 09:08 [facility] (Rec: 12/18/23 11:20 [facility] [id number]) Posture Evaluation Comments Posture Comments L ant tip shoulder; post pos posture PT-OP-K Range of Motion Start: 12/12/23 13:22 Freq: Status: Active Protocol: Document 12/18/23 09:08 [facility] (Rec: 12/18/23 11:20 [facility] [id number]) Cervical Spine Range of Motion Cervical Spine Active Degrees Flexion 65 Extension 67 Rotation Left 70 Rotation Right 74 Lateral Flexion Left 55 Lateral Flexion Right 44 Comments tension w/lat flex & flex Shoulder Goniometric Range of Motion Shoulder ROM Limitations Comments WNL B Elbow/Forearm Range of Motion Elbow/Forearm ROM Limitations Comments WNL except pronation: R:73 L: 94; pain end range passive supination Wrist Goniometric Range of Motion ROM Limitations Comments WNL except ext R:54 L:75 PT-OP-L Special Tests Start: 12/12/23 13:22 Freq: Status: Active Protocol: Document 12/18/23 09:08 [facility] (Rec: 12/18/23 11:20 [facility] [id number]) Special Tests Cervical Spine Special Tests Traction Test Results neg Spurling's Test Test Results neg Elbow Special Tests Cozen's Comments R pos Mill's Comments R pos Neural Special Tests- Upper Body Median Nerve Tension Comments positive Radial Nerve Tension Comments neg Ulnar Nerve Tension Comments neg PT-OP-M Strength Start: 12/12/23 13:22 Freq: Status: Active Protocol: Document 12/18/23 09:08 [facility] (Rec: 12/18/23 11:20 [facility] [id number]) Shoulder Strength Shoulder Manual Muscle Testing Right Flexion 5 Normal Extension 5 Normal Abduction (C5) 5 Normal External Rotation 5 Normal Internal Rotation 5 Normal Elbow/Forearm Strength Elbow and Forearm Manual Muscle Testing Right Flexion (C6) 5 Normal Extension (C7) 5 Normal Pronation 4+ Good+ Supination 5 Normal Wrist Strength Wrist Manual Muscle Testing Right Flexion (C7) 5 Normal Extension (C6) 5 Normal Ulnar Deviation 5 Normal Radial Deviation 5 Normal Comments pain ext Hand Vocational Aide/Pinch Strength Hand Dominance Hand Dominance Right Hand Strength Right Comments 98 lb, 93 lb, 100 lb-noticed it Left Comments 78lb, 84 lb, 88 lb PT-OP-Q Treatments Start: 12/12/23 13:22 Freq: Status: Active Protocol: Document 12/18/23 09:08 [facility] (Rec: 12/18/23 11:20 [facility] [id number]) Self-Care/Home Management Treatment Education Other Education 10 min: edu how radicular symptoms (not caused by nerve pinch) could cause elbow pain also. Discussed w/findings, less likely but med n tension noted but that could be related to med n tension at carpel tunnel. Discussed use of laser and US to help with inflamation at elbow and how dec wrist and elbow mobility could be related to why she has inc stress on ext tendons. Edu to try wrist ext/flex stretches to comfort. PT-OP-T Assessment and Plan Start: 12/12/23 13:22 Freq: Status: Active Protocol: Document 12/18/23 09:08 [facility] (Rec: 12/18/23 11:20 [facility] [id number]) Physical Therapy Assessment Rehab Potential Rehabilitation Potential Good Evaluation Complexity Number of Personal Factors/Comorbidities 1-2 Number of Body Systems Impaired 4 or More Clinical Presentation at Evaluation Evolving Impairments Impairments Activity Tolerance,Functional Activities,Functional Mobility ,Pain,Posture,ROM,Soft Tissue Mobility,Strength Goals mobility Short Term Goal (STG) Pt will have full wrist ext and pronation/supination w/o pain . STG Duration 5/2 Silk Crepe Machine Operator Goal (LTG) Pt will have no pain w/ resisted wrist ext or gripping LTG Duration 03/11 pain Care Home Goal (LTG) pt will report no pain greater than 1/10 at R elbow w/all typical activities (cross fit, work, grasp/reach activities) . LTG Duration 03/11 quick dash Impairment 50 Short Term Goal (STG) Improve quick dash score to no higher than 35 to show improved functional ability. STG Duration 5/2 Silk Crepe Machine Operator Goal (LTG) Improve quick dash score to no higher than 5 to show improved functional ability. LTG Duration 03/11 Assessment Summary Assessment Pt presents w/R elbow pain consistent w/lat epicondylitis based on location of pain, and positive cozen's and mill' s test. She has limited range into pronation and wrist ext and does have painw /passive overpressure into supination w /restriciton in range and dec mobility of extensor tendon tissues. She did have positive med n tension test, but does have known carpel tunnel which she is awaiting surgery for b , so is more likely related to this as no other findings indicating radicular pain found. Pt would benefit from skilled PT to address pain and improve quality of life w/ improved ability to greaser helper and do typical activities w/o daily pain. Physical Therapy Plan Frequency and Duration Frequency of Treatment 1-2x/wk Duration of treatment (weeks) 12 Plan of Care Start Date 12/18/23 Plan of Care End Date 03/11/24 Therapeutic Interventions Therapeutic Interventions Gait Training,Home Exercise Program,Joint Mobilizations, Manual Therapy,Neuromuscular Re-education,Patient/Caregiver Education,Self-Care/Home Management,Soft Tissue Mobilization,Taping, Therapeutic Activities, Therapeutic Exercises Modalities Cold Pack/Ice Massage,Electric Stimulation,Hot Packs, Infrared Therapy,Iontophoresis ,Ultrasound Other Therapeutic Interventions dexomethasone Next Visit Focus/Plan Next Note Type Treatment Note Next Visit Plan focus on manual for wrist mobility prior to carpel tunnel surgery, work on elbow joint mobility and soft tissue mobility, laser, US to elbow, consider ionto, review stretches, give eccentric wrist ext work, try KT tape
--- NOTE | 2023-12-18 14:58 | PT.OPPOC ---
Physical, Occupational & Speech Therapy At [facility] Current Diagnoses Lateral epicondylitis, right elbow (12/18/23) Visit Care Team Role Provider Type Cecile Amin DO Attending Provider Physician Family Provider Primary Care Provider Referring Provider Specialty: Family Practice Address: [address] [place] [address], [address], [facility] Email: [email or web address] Plan Of Care PT-OP-T Assessment and Plan Start: 12/12/23 13:22 Freq: Status: Active Protocol: Document 12/18/23 09:08 [facility] (Rec: 12/18/23 11:20 [facility] [id number]) Physical Therapy Assessment Rehab Potential Rehabilitation Potential Good Evaluation Complexity Number of Personal Factors/Comorbidities 1-2 Number of Body Systems Impaired 4 or More Clinical Presentation at Evaluation Evolving Impairments Impairments Activity Tolerance,Functional Activities,Functional Mobility ,Pain,Posture,ROM,Soft Tissue Mobility,Strength Goals mobility Short Term Goal (STG) Pt will have full wrist ext and pronation/supination w/o pain . STG Duration 5/2 Program Production Specialist Goal (LTG) Pt will have no pain w/ resisted wrist ext or gripping LTG Duration 03/11 pain Program Production Specialist Goal (LTG) pt will report no pain greater than 1/10 at R elbow w/all typical activities (cross fit, work, grasp/reach activities) . LTG Duration 03/11 quick dash Impairment 50 Short Term Goal (STG) Improve quick dash score to no higher than 35 to show improved functional ability. STG Duration 5/2 Program Production Specialist Goal (LTG) Improve quick dash score to no higher than 5 to show improved functional ability. LTG Duration 03/11 Assessment Summary Assessment Pt presents w/R elbow pain consistent w/lat epicondylitis based on location of pain, and positive cozen's and mill' s test. She has limited range into pronation and wrist ext and does have painw /passive overpressure into supination w /restriciton in range and dec mobility of extensor tendon tissues. She did have positive med n tension test, but does have known carpel tunnel which she is awaiting surgery for b , so is more likely related to this as no other findings indicating radicular pain found. Pt would benefit from skilled PT to address pain and improve quality of life w/ improved ability to clip bolter and wrapper and do typical activities w/o daily pain. Physical Therapy Plan Frequency and Duration Frequency of Treatment 1-2x/wk Duration of treatment (weeks) 12 Plan of Care Start Date 12/18/23 Plan of Care End Date 03/11/24 Therapeutic Interventions Therapeutic Interventions Gait Training,Home Exercise Program,Joint Mobilizations, Manual Therapy,Neuromuscular Re-education,Patient/Caregiver Education,Self-Care/Home Management,Soft Tissue Mobilization,Taping, Therapeutic Activities, Therapeutic Exercises Modalities Cold Pack/Ice Massage,Electric Stimulation,Hot Packs, Infrared Therapy,Iontophoresis ,Ultrasound Other Therapeutic Interventions dexomethasone Next Visit Focus/Plan Next Note Type Treatment Note Next Visit Plan focus on manual for wrist mobility prior to carpel tunnel surgery, work on elbow joint mobility and soft tissue mobility, laser, US to elbow, consider ionto, review stretches, give eccentric wrist ext work, try KT tape Plan of Care Dates Plan of Care Start Date 12/18/23 Plan of Care End Date 03/11/24 Electronically Signed by: Rocio Loo, PT 12/18/23 5310 If you are in agreement with this Plan of Care, please return a signed and dated copy. I have reviewed this Plan of Care and certify that the skilled therapy services above are required to meet the patient?s needs. Physician Signature Date Printed Name and Credentials Clinical Instructor Signature Printed Name and Credentials
--- NOTE | 2023-12-19 12:22 | PT.OTN ---
Current Diagnoses Lateral epicondylitis, right elbow (12/19/23) Physical Therapy Treatment Note PT-OP-A Visit Information Start: 12/12/23 13:22 Freq: Status: Active Protocol: Document 12/19/23 10:34 [facility] (Rec: 12/19/23 12:22 [facility] [id number]) Out-Patient Physical Therapy Visit Information Visit Information Visit Type Treatment Note Visit Start Time 10:35 Visit Stop Time 11:15 Visit Number 2 Number of TRANSPORTATION MAINTENANCE WORKER Visits 0 PT-OP-B Current Condition Start: 12/12/23 13:22 Freq: Status: Active Protocol: Document 12/18/23 09:08 [facility] (Rec: 12/18/23 11:20 [facility] [id number]) Current Condition History of Current Condition Onset Date 5 months ago Current Complaints R elbow pain History of Current Condition Pt reports she is unsure what started elbow pain. She does do crossfit and one day she was doing a dumblell workout and after felt pain radiating up and down lat arm. A friend of hers is an orthopedic surgeon and dx her w/tennis elbow. She wants to know what to avoid. She has a 12 day trip to [place] where she is goint o be picking up litter ( March 18). She was limiting herself to lower body workouts , had others carryt hings for her, took ibuprofen and iced twice a day and it didn't change anything. The pain level was the same so has returned back to the gym w/o limit except jump rope. She has carpel tunnel B and has numbness/tingling. She had an EMG and that was positive for carpel tunnel and showed no slowing at the elbow. Saw Citlalli Veliz PT after this and was given ROM exercises which improved motion but no help in the pain. She was concerned it was trapped nerve . Notes occ neck pain but has been more often since injury. Treatment Goals Patient/Caregiver Goals do her trip w/o her pain and dec pain PT-OP-C Subjective Start: 12/12/23 13:22 Freq: Status: Active Protocol: Document 12/19/23 10:34 [facility] (Rec: 12/19/23 12:22 [facility] [id number]) OP-PT Subjective Patient Comments Patient Comments pt reports woke up with a lot of elbow pain today and took ibuprofen thenw ent to gym. Notes last night her L thumb was painful with squatting so had to sit out PT-OP-F Manual Assessment Start: 12/12/23 13:22 Freq: Status: Active Protocol: Document 12/18/23 09:08 [facility] (Rec: 12/18/23 11:20 [facility] [id number]) Manual Assessments Joint Mobility Assessment Joint Mobility Assessment dec carpal PA, dec PA radius proximal and distal PT-OP-J Posture/Palpation/Skin Start: 12/12/23 13:22 Freq: Status: Active Protocol: Document 12/18/23 09:08 [facility] (Rec: 12/18/23 11:20 [facility] [id number]) Posture Evaluation Comments Posture Comments L ant tip shoulder; post pos posture PT-OP-K Range of Motion Start: 12/12/23 13:22 Freq: Status: Active Protocol: Document 12/18/23 09:08 [facility] (Rec: 12/18/23 11:20 [facility] [id number]) Cervical Spine Range of Motion Cervical Spine Active Degrees Flexion 65 Extension 67 Rotation Left 70 Rotation Right 74 Lateral Flexion Left 55 Lateral Flexion Right 44 Comments tension w/lat flex & flex Shoulder Goniometric Range of Motion Shoulder ROM Limitations Comments WNL B Elbow/Forearm Range of Motion Elbow/Forearm ROM Limitations Comments WNL except pronation: R:73 L: 94; pain end range passive supination Wrist Goniometric Range of Motion ROM Limitations Comments WNL except ext R:54 L:75 PT-OP-L Special Tests Start: 12/12/23 13:22 Freq: Status: Active Protocol: Document 12/18/23 09:08 [facility] (Rec: 12/18/23 11:20 [facility] [id number]) Special Tests Cervical Spine Special Tests Traction Test Results neg Spurling's Test Test Results neg Elbow Special Tests Cozen's Comments R pos Mill's Comments R pos Neural Special Tests- Upper Body Median Nerve Tension Comments positive Radial Nerve Tension Comments neg Ulnar Nerve Tension Comments neg PT-OP-M Strength Start: 12/12/23 13:22 Freq: Status: Active Protocol: Document 12/18/23 09:08 [facility] (Rec: 12/18/23 11:20 [facility] [id number]) Shoulder Strength Shoulder Manual Muscle Testing Right Flexion 5 Normal Extension 5 Normal Abduction (C5) 5 Normal External Rotation 5 Normal Internal Rotation 5 Normal Elbow/Forearm Strength Elbow and Forearm Manual Muscle Testing Right Flexion (C6) 5 Normal Extension (C7) 5 Normal Pronation 4+ Good+ Supination 5 Normal Wrist Strength Wrist Manual Muscle Testing Right Flexion (C7) 5 Normal Extension (C6) 5 Normal Ulnar Deviation 5 Normal Radial Deviation 5 Normal Comments pain ext Hand Water Sander/Pinch Strength Hand Dominance Hand Dominance Right Hand Strength Right Comments 98 lb, 93 lb, 100 lb-noticed it Left Comments 78lb, 84 lb, 88 lb PT-OP-Q Treatments Start: 12/12/23 13:22 Freq: Status: Active Protocol: Document 12/19/23 10:34 [facility] (Rec: 12/19/23 12:22 [facility] [id number]) Manual Therapy Treatment Soft Tissue Mobilization extensor tendons Body Location R Mobilization Type Rolling Intensity/Depth Moderate Body Position Sitting Joint Mobilizations radioulnar Comments 1. proximal radius PA FM 2. distal radius PA FM carpals Comments proximal and distal PA FM Self-Care/Home Management Treatment Activities Self-Care/Home Management Activities edu on eccentric wrist ext w/ 2lb and rationale PT-OP-R Modalities Start: 12/12/23 13:22 Freq: Status: Active Protocol: Document 12/19/23 10:34 [facility] (Rec: 12/19/23 12:22 [facility] [id number]) Infrared Treatment Treatment R lat epicondyle Body Position Sitting Comments chronic mod tendon protocol Ultrasound Therapy Treatment R lat epicondyle Patient Position Sitting Coupling Medium Ultrasound Gel Mode Setting Pulsed Duty Cycle 50% Intensity Setting (w/cm2) 1.0 Comments 8 min PT-OP-T Assessment and Plan Start: 12/12/23 13:22 Freq: Status: Active Protocol: Document 12/19/23 10:34 [facility] (Rec: 12/19/23 12:22 [facility] [id number]) Physical Therapy Assessment Goals mobility Short Term Goal (STG) Pt will have full wrist ext and pronation/supination w/o pain . STG Duration 5/2 Long-Term Goal (LTG) Pt will have no pain w/ resisted wrist ext or gripping LTG Duration / pain Long-Term Goal (LTG) pt will report no pain greater than 1/10 at R elbow w/all typical activities (cross fit, work, grasp/reach activities) . LTG Duration 03/11 quick dash Impairment 50 Short Term Goal (STG) Improve quick dash score to no higher than 35 to show improved functional ability. STG Duration / Director Part Goal (LTG) Improve quick dash score to no higher than 5 to show improved functional ability. LTG Duration 03/11 Assessment Summary Assessment Pt had improved R wrist flex and pronation and supination w /o inc pain after manual, US and laser today. Physical Therapy Plan Frequency and Duration Frequency of Treatment 1-2x/wk Duration of treatment (weeks) 12 Plan of Care Start Date 12/18/23 Plan of Care End Date 03/11/24 Therapeutic Interventions Therapeutic Interventions Gait Training,Home Exercise Program,Joint Mobilizations, Manual Therapy,Neuromuscular Re-education,Patient/Caregiver Education,Self-Care/Home Management,Soft Tissue Mobilization,Taping, Therapeutic Activities, Therapeutic Exercises Modalities Cold Pack/Ice Massage,Electric Stimulation,Hot Packs, Infrared Therapy,Iontophoresis ,Ultrasound Other Therapeutic Interventions dexomethasone Next Visit Focus/Plan Next Note Type Treatment Note Next Visit Plan assess response to modalities and cont if good response; try KT tape, assess response to start eccentric wrist ext exercises; STM to extenor group along w/jt mobiltiy of wrist and forearm
--- NOTE | 2023-12-24 17:14 | PT.OTN ---
Current Diagnoses Lateral epicondylitis, right elbow (12/24/23) Physical Therapy Treatment Note PT-OP-A Visit Information Start: 12/12/23 13:22 Freq: Status: Active Protocol: Document 12/24/23 15:17 [facility] (Rec: 12/24/23 17:03 [facility] [id number]) Out-Patient Physical Therapy Visit Information Visit Information Visit Type Treatment Note Visit Start Time 15:19 Visit Stop Time 16:01 Visit Number 3 Number of BLIND CLEANER Visits 0 PT-OP-B Current Condition Start: 12/12/23 13:22 Freq: Status: Active Protocol: Document 12/18/23 09:08 [facility] (Rec: 12/18/23 11:20 [facility] [id number]) Current Condition History of Current Condition Onset Date 5 months ago Current Complaints R elbow pain History of Current Condition Pt reports she is unsure what started elbow pain. She does do crossfit and one day she was doing a dumblell workout and after felt pain radiating up and down lat arm. A friend of hers is an orthopedic surgeon and dx her w/tennis elbow. She wants to know what to avoid. She has a 12 day trip to [place] where she is goint o be picking up litter ( March 18). She was limiting herself to lower body workouts , had others carryt hings for her, took ibuprofen and iced twice a day and it didn't change anything. The pain level was the same so has returned back to the gym w/o limit except jump rope. She has carpel tunnel B and has numbness/tingling. She had an EMG and that was positive for carpel tunnel and showed no slowing at the elbow. Saw Citlalli Veliz PT after this and was given ROM exercises which improved motion but no help in the pain. She was concerned it was trapped nerve . Notes occ neck pain but has been more often since injury. Treatment Goals Patient/Caregiver Goals do her trip w/o her pain and dec pain PT-OP-C Subjective Start: 12/12/23 13:22 Freq: Status: Active Protocol: Document 12/24/23 15:17 [facility] (Rec: 12/24/23 17:03 [facility] [id number]) OP-PT Subjective Patient Comments Patient Comments [place] the [place] was [place]shoeing and pushing w /poles and inc pain after that on Sat. Pain inc saturday. and saturday felt good PT-OP-F Manual Assessment Start: 12/12/23 13:22 Freq: Status: Active Protocol: Document 12/18/23 09:08 [facility] (Rec: 12/18/23 11:20 [facility] [id number]) Manual Assessments Joint Mobility Assessment Joint Mobility Assessment dec carpal PA, dec PA radius proximal and distal PT-OP-J Posture/Palpation/Skin Start: 12/12/23 13:22 Freq: Status: Active Protocol: Document 12/18/23 09:08 [facility] (Rec: 12/18/23 11:20 [facility] [id number]) Posture Evaluation Comments Posture Comments L ant tip shoulder; post pos posture PT-OP-K Range of Motion Start: 12/12/23 13:22 Freq: Status: Active Protocol: Document 12/18/23 09:08 [facility] (Rec: 12/18/23 11:20 [facility] [id number]) Cervical Spine Range of Motion Cervical Spine Active Degrees Flexion 65 Extension 67 Rotation Left 70 Rotation Right 74 Lateral Flexion Left 55 Lateral Flexion Right 44 Comments tension w/lat flex & flex Shoulder Goniometric Range of Motion Shoulder ROM Limitations Comments WNL B Elbow/Forearm Range of Motion Elbow/Forearm ROM Limitations Comments WNL except pronation: R:73 L: 94; pain end range passive supination Wrist Goniometric Range of Motion ROM Limitations Comments WNL except ext R:54 L:75 PT-OP-L Special Tests Start: 12/12/23 13:22 Freq: Status: Active Protocol: Document 12/18/23 09:08 [facility] (Rec: 12/18/23 11:20 [facility] [id number]) Special Tests Cervical Spine Special Tests Traction Test Results neg Spurling's Test Test Results neg Elbow Special Tests Cozen's Comments R pos Mill's Comments R pos Neural Special Tests- Upper Body Median Nerve Tension Comments positive Radial Nerve Tension Comments neg Ulnar Nerve Tension Comments neg PT-OP-M Strength Start: 12/12/23 13:22 Freq: Status: Active Protocol: Document 12/18/23 09:08 [facility] (Rec: 12/18/23 11:20 [facility] [id number]) Shoulder Strength Shoulder Manual Muscle Testing Right Flexion 5 Normal Extension 5 Normal Abduction (C5) 5 Normal External Rotation 5 Normal Internal Rotation 5 Normal Elbow/Forearm Strength Elbow and Forearm Manual Muscle Testing Right Flexion (C6) 5 Normal Extension (C7) 5 Normal Pronation 4+ Good+ Supination 5 Normal Wrist Strength Wrist Manual Muscle Testing Right Flexion (C7) 5 Normal Extension (C6) 5 Normal Ulnar Deviation 5 Normal Radial Deviation 5 Normal Comments pain ext Hand Injection Molding Technician/Pinch Strength Hand Dominance Hand Dominance Right Hand Strength Right Comments 98 lb, 93 lb, 100 lb-noticed it Left Comments 78lb, 84 lb, 88 lb PT-OP-Q Treatments Start: 12/12/23 13:22 Freq: Status: Active Protocol: Document 12/24/23 15:17 [facility] (Rec: 12/24/23 17:13 [facility] [id number]) Therapeutic Exercises Sitting Exercises wrist ext Sitting Exercise Name eccentric only w/elbow bent and rested on table Side right Equipment Used 2# Reps/Minutes 10 pronation Sitting Exercise Name manual resistance at end range Side right Reps/Minutes 3 min total thru mult prolonge dholds and rhythmic iniation stretch Sitting Exercise Name wrist flexor & wrist extensor stretch Side right Reps/Minutes 3 min spent today Manual Therapy Treatment Soft Tissue Mobilization pronator Body Location R teres Mobilization Type Rolling,Sustained Pressure Intensity/Depth Moderate Body Position Sitting extensor tendons Body Location R Mobilization Type Rolling Intensity/Depth Moderate Body Position Sitting Joint Mobilizations radioulnar Comments 1. proximal radius PA FM 2. distal radius PA FM 3. on axis R ulna FM carpals Comments proximal and distal PA FM PT-OP-R Modalities Start: 12/12/23 13:22 Freq: Status: Active Protocol: Document 12/24/23 15:17 [facility] (Rec: 12/24/23 17:03 [facility] [id number]) Infrared Treatment Treatment R lat epicondyle Body Position Sitting Comments chronic mod tendon protocol Ultrasound Therapy Treatment R lat epicondyle Patient Position Sitting Coupling Medium Ultrasound Gel Mode Setting Pulsed Duty Cycle 50% Intensity Setting (w/cm2) 1.0 Comments 5 min PT-OP-T Assessment and Plan Start: 12/12/23 13:22 Freq: Status: Active Protocol: Document 12/24/23 15:17 [facility] (Rec: 12/24/23 17:03 [facility] [id number]) Physical Therapy Assessment Goals mobility Short Term Goal (STG) Pt will have full wrist ext and pronation/supination w/o pain . STG Duration 5/2 Quality Assurance Tech Goal (LTG) Pt will have no pain w/ resisted wrist ext or gripping LTG Duration 03/11 pain Senior Living Goal (LTG) pt will report no pain greater than 1/10 at R elbow w/all typical activities (cross fit, work, grasp/reach activities) . LTG Duration 03/11 quick dash Impairment 50 Short Term Goal (STG) Improve quick dash score to no higher than 35 to show improved functional ability. STG Duration 5/2 Senior Living Goal (LTG) Improve quick dash score to no higher than 5 to show improved functional ability. LTG Duration 03/11 Assessment Summary Assessment Pt had no pain w/resisted wrist ext in elbow flexed position today but still pain in elbow extended position w/ resisted wrist ext. no pain w/ pronation or supination today but weakness at end range pronation. Physical Therapy Plan Frequency and Duration Frequency of Treatment 1-2x/wk Duration of treatment (weeks) 12 Plan of Care Start Date 12/18/23 Plan of Care End Date 03/11/24 Next Visit Focus/Plan Next Note Type Treatment Note Next Visit Plan assess response to modalities and cont if good response; try KT tape, assess response to start eccentric wrist ext exercises; STM to extenor group along w/jt mobiltiy of wrist and elbow
--- NOTE | 2023-12-26 10:54 | PT.OTN ---
Current Diagnoses Lateral epicondylitis, right elbow (12/26/23) Physical Therapy Treatment Note PT-OP-A Visit Information Start: 12/12/23 13:22 Freq: Status: Active Protocol: Document 12/26/23 08:04 [facility] (Rec: 12/26/23 09:02 [facility] [id number]) Out-Patient Physical Therapy Visit Information Visit Information Visit Type Treatment Note Visit Note Access Code: [email or web address] Visit Start Time 08:16 Visit Stop Time 08:58 Visit Number 4 Number of MARKETING ACCOUNT EXECUTIVE Visits 1 PT-OP-B Current Condition Start: 12/12/23 13:22 Freq: Status: Active Protocol: Document 12/18/23 09:08 [facility] (Rec: 12/18/23 11:20 [facility] [id number]) Current Condition History of Current Condition Onset Date 5 months ago Current Complaints R elbow pain History of Current Condition Pt reports she is unsure what started elbow pain. She does do crossfit and one day she was doing a dumblell workout and after felt pain radiating up and down lat arm. A friend of hers is an orthopedic surgeon and dx her w/tennis elbow. She wants to know what to avoid. She has a 12 day trip to [place] where she is goint o be picking up litter ( March 18). She was limiting herself to lower body workouts , had others carryt hings for her, took ibuprofen and iced twice a day and it didn't change anything. The pain level was the same so has returned back to the gym w/o limit except jump rope. She has carpel tunnel B and has numbness/tingling. She had an EMG and that was positive for carpel tunnel and showed no slowing at the elbow. Saw Citlalli Veliz PT after this and was given ROM exercises which improved motion but no help in the pain. She was concerned it was trapped nerve . Notes occ neck pain but has been more often since injury. Treatment Goals Patient/Caregiver Goals do her trip w/o her pain and dec pain PT-OP-C Subjective Start: 12/12/23 13:22 Freq: Status: Active Protocol: Document 12/26/23 08:04 [facility] (Rec: 12/26/23 09:02 [facility] [id number]) OP-PT Subjective Patient Comments Patient Comments Patient reports she is the same. Patient reports no trouble with HEP exercises, pain with gripping with pronation when tying shoes and holding a large container with a acid changer are activites that continue to cause increased pain. PT-OP-F Manual Assessment Start: 12/12/23 13:22 Freq: Status: Active Protocol: Document 12/18/23 09:08 [facility] (Rec: 12/18/23 11:20 [facility] [id number]) Manual Assessments Joint Mobility Assessment Joint Mobility Assessment dec carpal PA, dec PA radius proximal and distal PT-OP-J Posture/Palpation/Skin Start: 12/12/23 13:22 Freq: Status: Active Protocol: Document 12/18/23 09:08 [facility] (Rec: 12/18/23 11:20 [facility] [id number]) Posture Evaluation Comments Posture Comments L ant tip shoulder; post pos posture PT-OP-K Range of Motion Start: 12/12/23 13:22 Freq: Status: Active Protocol: Document 12/18/23 09:08 [facility] (Rec: 12/18/23 11:20 [facility] [id number]) Cervical Spine Range of Motion Cervical Spine Active Degrees Flexion 65 Extension 67 Rotation Left 70 Rotation Right 74 Lateral Flexion Left 55 Lateral Flexion Right 44 Comments tension w/lat flex & flex Shoulder Goniometric Range of Motion Shoulder ROM Limitations Comments WNL B Elbow/Forearm Range of Motion Elbow/Forearm ROM Limitations Comments WNL except pronation: R:73 L: 94; pain end range passive supination Wrist Goniometric Range of Motion ROM Limitations Comments WNL except ext R:54 L:75 PT-OP-L Special Tests Start: 12/12/23 13:22 Freq: Status: Active Protocol: Document 12/18/23 09:08 [facility] (Rec: 12/18/23 11:20 [facility] [id number]) Special Tests Cervical Spine Special Tests Traction Test Results neg Spurling's Test Test Results neg Elbow Special Tests Cozen's Comments R pos Mill's Comments R pos Neural Special Tests- Upper Body Median Nerve Tension Comments positive Radial Nerve Tension Comments neg Ulnar Nerve Tension Comments neg PT-OP-M Strength Start: 12/12/23 13:22 Freq: Status: Active Protocol: Document 12/18/23 09:08 [facility] (Rec: 12/18/23 11:20 [facility] [id number]) Shoulder Strength Shoulder Manual Muscle Testing Right Flexion 5 Normal Extension 5 Normal Abduction (C5) 5 Normal External Rotation 5 Normal Internal Rotation 5 Normal Elbow/Forearm Strength Elbow and Forearm Manual Muscle Testing Right Flexion (C6) 5 Normal Extension (C7) 5 Normal Pronation 4+ Good+ Supination 5 Normal Wrist Strength Wrist Manual Muscle Testing Right Flexion (C7) 5 Normal Extension (C6) 5 Normal Ulnar Deviation 5 Normal Radial Deviation 5 Normal Comments pain ext Hand Senior Service Technician/Pinch Strength Hand Dominance Hand Dominance Right Hand Strength Right Comments 98 lb, 93 lb, 100 lb-noticed it Left Comments 78lb, 84 lb, 88 lb PT-OP-Q Treatments Start: 12/12/23 13:22 Freq: Status: Active Protocol: Document 12/26/23 08:04 [facility] (Rec: 12/26/23 09:02 [facility] [id number]) Therapeutic Exercises Sitting Exercises wrist extension with fingers extended Side right Reps/Minutes X15 Comments verbal cues wrist extension with fingers flexed Side right Reps/Minutes X15 Comments verbal cues stretch Sitting Exercise Name wrist flexor & wrist extensor stretch Side right Reps/Minutes 2 min spent today Standing Exercises pronation supination with therabanr Standing Exercise Name Therabar, yellow twist Side right Equipment Used yellow therabar Reps/Minutes 15 X2 Comments verbal and visual cues pronation with hammer Side right Equipment Used hammer Reps/Minutes X15 Comments verbal and visual cues pronation with therabar Standing Exercise Name bar on mat at table height, one end on mat, bending bar into and arch Side right Resistance yellow therabar Equipment Used X15 Comments verbal and visual cues push up plus on counter Side bilateral Reps/Minutes X15 Comments verbal cues, monitored for pain push up plus on wall Side bilateral Reps/Minutes X15 Comments verbal and visual cues Manual Therapy Treatment Soft Tissue Mobilization right forearm Body Location increased emphasis lateral posterior proximal forearm Mobilization Type Cross-Friction,Rolling Intensity/Depth Moderate Body Position Hooklying Comments monitored for pain Joint Mobilizations Mulligan with movement lateral elbow mobilization Joint with gripping Direction lateral Grade IV Body Position Hooklying Reps/Duration X10 Comments Monitored for pain Taping right elbow Treatment Focus lateral epicondylitis Type of Tape Y tape with strips around forearm Skin Inspection WNL avoiding band aid Self-Care/Home Management Treatment Activities Self-Care/Home Management Activities pronation with hammer added to HEP and wall push /counter push up for trial to modify when performing push ups at gym and note if pain post gym exercises decreases. PT-OP-R Modalities Start: 12/12/23 13:22 Freq: Status: Active Protocol: Document 12/24/23 15:17 [facility] (Rec: 12/24/23 17:03 [facility] [id number]) Infrared Treatment Treatment R lat epicondyle Body Position Sitting Comments chronic mod tendon protocol Ultrasound Therapy Treatment R lat epicondyle Patient Position Sitting Coupling Medium Ultrasound Gel Mode Setting Pulsed Duty Cycle 50% Intensity Setting (w/cm2) 1.0 Comments 5 min PT-OP-T Assessment and Plan Start: 12/12/23 13:22 Freq: Status: Active Protocol: Document 12/26/23 08:04 [facility] (Rec: 12/26/23 09:02 [facility] [id number]) Physical Therapy Assessment Goals mobility Short Term Goal (STG) Pt will have full wrist ext and pronation/supination w/o pain . STG Duration 5/2 Jail Goal (LTG) Pt will have no pain w/ resisted wrist ext or gripping LTG Duration 03/11 pain Jail Goal (LTG) pt will report no pain greater than 1/10 at R elbow w/all typical activities (cross fit, work, grasp/reach activities) . LTG Duration 03/11 quick dash Impairment 50 Short Term Goal (STG) Improve quick dash score to no higher than 35 to show improved functional ability. STG Duration 5/2 Equestrian Trainer Goal (LTG) Improve quick dash score to no higher than 5 to show improved functional ability. LTG Duration 03/11 Assessment Summary Assessment Diana reports less pain tying shoes post manual therapy. Good return demonstration for exercises, with reports of no increased pain during exercises this session. Physical Therapy Plan Frequency and Duration Frequency of Treatment 1-2x/wk Duration of treatment (weeks) 12 Plan of Care Start Date 12/18/23 Plan of Care End Date 03/11/24 Next Visit Focus/Plan Next Note Type Treatment Note Next Visit Plan assess response to modalities and cont if good response; assess danisha to KT tape, assess response to start eccentric wrist ext exercises; STM to extenor group along w/jt mobiltiy of wrist and elbow
--- NOTE | 2023-12-31 13:40 | PT.OTN ---
Current Diagnoses Lateral epicondylitis, right elbow (12/31/23) Physical Therapy Treatment Note PT-OP-A Visit Information Start: 12/12/23 13:22 Freq: Status: Active Protocol: Document 12/31/23 08:04 AB (Rec: 12/31/23 09:02 AB [id number]) Out-Patient Physical Therapy Visit Information Visit Information Visit Type Treatment Note Visit Note Access Code: [email or web address] Visit Start Time 08:19 Visit Stop Time 09:00 Visit Number 5 Number of UNIT COORDINATOR Visits 2 PT-OP-B Current Condition Start: 12/12/23 13:22 Freq: Status: Active Protocol: Document 12/18/23 09:08 [facility] (Rec: 12/18/23 11:20 [facility] [id number]) Current Condition History of Current Condition Onset Date 5 months ago Current Complaints R elbow pain History of Current Condition Pt reports she is unsure what started elbow pain. She does do crossfit and one day she was doing a dumblell workout and after felt pain radiating up and down lat arm. A friend of hers is an orthopedic surgeon and dx her w/tennis elbow. She wants to know what to avoid. She has a 12 day trip to [place] where she is goint o be picking up litter ( March 18). She was limiting herself to lower body workouts , had others carryt hings for her, took ibuprofen and iced twice a day and it didn't change anything. The pain level was the same so has returned back to the gym w/o limit except jump rope. She has carpel tunnel B and has numbness/tingling. She had an EMG and that was positive for carpel tunnel and showed no slowing at the elbow. Saw Citlalli Veliz PT after this and was given ROM exercises which improved motion but no help in the pain. She was concerned it was trapped nerve . Notes occ neck pain but has been more often since injury. Treatment Goals Patient/Caregiver Goals do her trip w/o her pain and dec pain PT-OP-C Subjective Start: 12/12/23 13:22 Freq: Status: Active Protocol: Document 12/31/23 08:04 AB (Rec: 12/31/23 09:02 AB [id number]) OP-PT Subjective Patient Comments Patient Comments Patient reports removing tape was painful, does not want to tape again. Patient reports tying shoes is less pain. Pt reports pain with gripping right UE start of session. PT-OP-F Manual Assessment Start: 12/12/23 13:22 Freq: Status: Active Protocol: Document 12/18/23 09:08 [facility] (Rec: 12/18/23 11:20 [facility] [id number]) Manual Assessments Joint Mobility Assessment Joint Mobility Assessment dec carpal PA, dec PA radius proximal and distal PT-OP-J Posture/Palpation/Skin Start: 12/12/23 13:22 Freq: Status: Active Protocol: Document 12/18/23 09:08 [facility] (Rec: 12/18/23 11:20 [facility] [id number]) Posture Evaluation Comments Posture Comments L ant tip shoulder; post pos posture PT-OP-K Range of Motion Start: 12/12/23 13:22 Freq: Status: Active Protocol: Document 12/18/23 09:08 [facility] (Rec: 12/18/23 11:20 [facility] [id number]) Cervical Spine Range of Motion Cervical Spine Active Degrees Flexion 65 Extension 67 Rotation Left 70 Rotation Right 74 Lateral Flexion Left 55 Lateral Flexion Right 44 Comments tension w/lat flex & flex Shoulder Goniometric Range of Motion Shoulder ROM Limitations Comments WNL B Elbow/Forearm Range of Motion Elbow/Forearm ROM Limitations Comments WNL except pronation: R:73 L: 94; pain end range passive supination Wrist Goniometric Range of Motion ROM Limitations Comments WNL except ext R:54 L:75 PT-OP-L Special Tests Start: 12/12/23 13:22 Freq: Status: Active Protocol: Document 12/18/23 09:08 [facility] (Rec: 12/18/23 11:20 [facility] [id number]) Special Tests Cervical Spine Special Tests Traction Test Results neg Spurling's Test Test Results neg Elbow Special Tests Cozen's Comments R pos Mill's Comments R pos Neural Special Tests- Upper Body Median Nerve Tension Comments positive Radial Nerve Tension Comments neg Ulnar Nerve Tension Comments neg PT-OP-M Strength Start: 12/12/23 13:22 Freq: Status: Active Protocol: Document 12/18/23 09:08 [facility] (Rec: 12/18/23 11:20 [facility] [id number]) Shoulder Strength Shoulder Manual Muscle Testing Right Flexion 5 Normal Extension 5 Normal Abduction (C5) 5 Normal External Rotation 5 Normal Internal Rotation 5 Normal Elbow/Forearm Strength Elbow and Forearm Manual Muscle Testing Right Flexion (C6) 5 Normal Extension (C7) 5 Normal Pronation 4+ Good+ Supination 5 Normal Wrist Strength Wrist Manual Muscle Testing Right Flexion (C7) 5 Normal Extension (C6) 5 Normal Ulnar Deviation 5 Normal Radial Deviation 5 Normal Comments pain ext 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 Dominance Hand Dominance Right Hand Strength Right Comments 98 lb, 93 lb, 100 lb-noticed it Left Comments 78lb, 84 lb, 88 lb PT-OP-Q Treatments Start: 12/12/23 13:22 Freq: Status: Active Protocol: Document 12/31/23 08:04 AB (Rec: 12/31/23 09:02 AB [id number]) Therapeutic Exercises Sitting Exercises wrist extension with fingers extended Side right Reps/Minutes X15 Comments verbal cues wrist extension with fingers flexed Side right Reps/Minutes X15 Comments verbal cues wrist ext Sitting Exercise Name eccentric only w/elbow bent and rested on table Side right Equipment Used 2# Reps/Minutes 15 stretch Sitting Exercise Name wrist flexor & wrist extensor stretch Side right Reps/Minutes 2 min spent today Standing Exercises dowel rolling with 2 lb off rope Standing Exercise Name dowel with rope with 2 lb on end of rope Side bilateral Resistance 2lb Equipment Used x2 Reps/Minutes 1 min pronation supination with therabanr Standing Exercise Name Therabar, yellow twist Side right Equipment Used yellow therabar Reps/Minutes 15 X2 Comments verbal and visual cues pronation with hammer Equipment Used hammer Reps/Minutes 15X2 Comments verbal and visual cues pronation with therabar Standing Exercise Name bar on mat at table height, one end on mat, bending bar into and arch Side right Resistance yellow therabar Equipment Used X15 Comments verbal and visual cues push up plus on wall Side bilateral Reps/Minutes X15 Comments verbal and visual cues Manual Therapy Treatment Soft Tissue Mobilization right forearm Body Location increased emphasis lateral posterior/anterior proximal forearm Mobilization Type Cross-Friction,Rolling Intensity/Depth Moderate Body Position Hooklying Comments monitored for pain extensor tendons Body Location R Mobilization Type Rolling Intensity/Depth Moderate Body Position Sitting PT-OP-R Modalities Start: 12/12/23 13:22 Freq: Status: Active Protocol: Document 12/24/23 15:17 [facility] (Rec: 12/24/23 17:03 [facility] [id number]) Infrared Treatment Treatment R lat epicondyle Body Position Sitting Comments chronic mod tendon protocol Ultrasound Therapy Treatment R lat epicondyle Patient Position Sitting Coupling Medium Ultrasound Gel Mode Setting Pulsed Duty Cycle 50% Intensity Setting (w/cm2) 1.0 Comments 5 min PT-OP-T Assessment and Plan Start: 12/12/23 13:22 Freq: Status: Active Protocol: Document 12/31/23 08:04 AB (Rec: 12/31/23 09:02 AB [id number]) Physical Therapy Assessment Goals mobility Short Term Goal (STG) Pt will have full wrist ext and pronation/supination w/o pain . STG Duration 5/2 Manager Image Goal (LTG) Pt will have no pain w/ resisted wrist ext or gripping LTG Duration 03/11 pain Shelter Goal (LTG) pt will report no pain greater than 1/10 at R elbow w/all typical activities (cross fit, work, grasp/reach activities) . LTG Duration 03/11 quick dash Impairment 50 Short Term Goal (STG) Improve quick dash score to no higher than 35 to show improved functional ability. STG Duration 5/2 Manager Image Goal (LTG) Improve quick dash score to no higher than 5 to show improved functional ability. 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 Physical Therapy Plan Frequency and Duration Frequency of Treatment 1-2x/wk Duration of treatment (weeks) 12 Plan of Care Start Date 12/18/23 Plan of Care End Date 03/11/24 Next Visit Focus/Plan Next Note Type Treatment Note Next Visit Plan STM to extenor group along w/ jt mobiltiy of wrist and elbow
--- NOTE | 2024-02-24 07:58 | PT.OPDS ---
Current Diagnoses Lateral epicondylitis, right elbow (12/31/23) Visit Care Team Role Provider Type Cecile Amin DO Attending Provider Physician Family Provider Primary Care Provider Referring Provider Specialty: Family Practice Address: [address] [place] [address], [address], [place], [address] Email: [email or web address] Visit Number Visit Number 5 Discharge Summary PT-OP-B Current Condition Start: 12/12/23 13:22 Freq: Status: Active Protocol: Document 12/18/23 09:08 [facility] (Rec: 12/18/23 11:20 [facility] [id number]) Current Condition History of Current Condition Onset Date 5 months ago Current Complaints R elbow pain History of Current Condition Pt reports she is unsure what started elbow pain. She does do crossfit and one day she was doing a dumblell workout and after felt pain radiating up and down lat arm. A friend of hers is an orthopedic surgeon and dx her w/tennis elbow. She wants to know what to avoid. She has a 12 day trip to [place] where she is goint o be picking up litter ( March 18). She was limiting herself to lower body workouts , had others carryt hings for her, took ibuprofen and iced twice a day and it didn't change anything. The pain level was the same so has returned back to the gym w/o limit except jump rope. She has carpel tunnel B and has numbness/tingling. She had an EMG and that was positive for carpel tunnel and showed no slowing at the elbow. Saw Citlalli Veliz PT after this and was given ROM exercises which improved motion but no help in the pain. She was concerned it was trapped nerve . Notes occ neck pain but has been more often since injury. Treatment Goals Patient/Caregiver Goals do her trip w/o her pain and dec pain PT-OP-C Subjective Start: 12/12/23 13:22 Freq: Status: Active Protocol: Document 12/31/23 08:04 AB (Rec: 12/31/23 09:02 AB [id number]) OP-PT Subjective Patient Comments Patient Comments Patient reports removing tape was painful, does not want to tape again. Patient reports tying shoes is less pain. Pt reports pain with gripping right UE start of session. PT-OP-F Manual Assessment Start: 12/12/23 13:22 Freq: Status: Active Protocol: Document 12/18/23 09:08 [facility] (Rec: 12/18/23 11:20 [facility] [id number]) Manual Assessments Joint Mobility Assessment Joint Mobility Assessment dec carpal PA, dec PA radius proximal and distal PT-OP-J Posture/Palpation/Skin Start: 12/12/23 13:22 Freq: Status: Active Protocol: Document 12/18/23 09:08 [facility] (Rec: 12/18/23 11:20 [facility] [id number]) Posture Evaluation Comments Posture Comments L ant tip shoulder; post pos posture PT-OP-K Range of Motion Start: 12/12/23 13:22 Freq: Status: Active Protocol: Document 12/18/23 09:08 [facility] (Rec: 12/18/23 11:20 [facility] [id number]) Cervical Spine Range of Motion Cervical Spine Active Degrees Flexion 65 Extension 67 Rotation Left 70 Rotation Right 74 Lateral Flexion Left 55 Lateral Flexion Right 44 Comments tension w/lat flex & flex Shoulder Goniometric Range of Motion Shoulder ROM Limitations Comments WNL B Elbow/Forearm Range of Motion Elbow/Forearm ROM Limitations Comments WNL except pronation: R:73 L: 94; pain end range passive supination Wrist Goniometric Range of Motion ROM Limitations Comments WNL except ext R:54 L:75 PT-OP-L Special Tests Start: 12/12/23 13:22 Freq: Status: Active Protocol: Document 12/18/23 09:08 [facility] (Rec: 12/18/23 11:20 [facility] [id number]) Special Tests Cervical Spine Special Tests Traction Test Results neg Spurling's Test Test Results neg Elbow Special Tests Cozen's Comments R pos Mill's Comments R pos Neural Special Tests- Upper Body Median Nerve Tension Comments positive Radial Nerve Tension Comments neg Ulnar Nerve Tension Comments neg PT-OP-M Strength Start: 12/12/23 13:22 Freq: Status: Active Protocol: Document 12/18/23 09:08 [facility] (Rec: 12/18/23 11:20 [facility] [id number]) Shoulder Strength Shoulder Manual Muscle Testing Right Flexion 5 Normal Extension 5 Normal Abduction (C5) 5 Normal External Rotation 5 Normal Internal Rotation 5 Normal Elbow/Forearm Strength Elbow and Forearm Manual Muscle Testing Right Flexion (C6) 5 Normal Extension (C7) 5 Normal Pronation 4+ Good+ Supination 5 Normal Wrist Strength Wrist Manual Muscle Testing Right Flexion (C7) 5 Normal Extension (C6) 5 Normal Ulnar Deviation 5 Normal Radial Deviation 5 Normal Comments pain 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 Canceled all remaining visits . Pt has not called back in about 2 months at this time. DC d/t no longer attending PT Physical Therapy Plan Discharge Physical Therapy Discharge Reasons No Longer Attending PT
== END 2024-02-24 14:35 | disposition home or self-care (01) ==
LOC: PHYS 08:15
PROVIDERS: Family Provider Family Medicine; PCP Family Medicine; Referring Provider Family Medicine; Visit Provider Family Medicine
DX: M77.11 Lateral epicondylitis, right elbow (principal)
CPT/HCPCS: 97035; 97110; 97140; 97162; 97530; 97535

== ENCOUNTER → 2024-08-08 08:49 | Outpatient (CLI) | payer OTHER, SELFPAY ==
[2024-08-08 10:07] LABS: Add Manual Diff / Slide Review NO; Basophils Absolute Auto 0 /uL (0-100); Eosinophils Absolute Auto 300 /uL (0-450); Eosinophils Percent Auto 6.6 % (2-4); Hematocrit 37.2 % (36-46); Hemoglobin 12.4 g/dL (12.0-16.0); Lymphocytes Absolute Auto 1600 /uL (1100-4500); Lymphocytes Percent Auto 36.6 % (25-40); Mean Corpuscular HGB Conc 33.4 % (30-36); Mean Corpuscular Hemoglobin 29.5 PG (26-34); Mean Corpuscular Volume 88.1 fL (80-100); Monocytes Absolute Auto 400 /uL (0-900); Monocytes Percent Auto 9.9 % (3-14); Neutrophils Absolute Auto 2000 /uL (1500-7000); Neutrophils Percent Auto 45.9 % (50-75); Platelet Count 277 X10^3/uL (150-400); Red Blood Cell Count 4.22 X10^6/uL (4.0-5.2); Red Cell Distribution Width 14.3 % (11.6-14.8); White Blood Cell Count 4.4 X10^3/uL (4.5-11.0)
[2024-08-08 10:39] LABS: Alanine Aminotransferase 27 IU/L (<35); Albumin 4.2 g/dL (3.5-5.0); Albumin Globulin Ratio 1.5 (1.0-2.8); Alkaline Phosphatase 67 U/L (38-126); Aspartate Aminotransferase 41 IU/L (14-36); BUN Creatinine Ratio 23.6 (6-22); Bilirubin Total 0.5 mg/dL (0.2-1.3); Blood Urea Nitrogen 25 mg/dL (7-17); Calcium 9.2 mg/dL (8.4-10.2); Carbon Dioxide 26 mmol/L (22-32); Chloride 106 mmol/L (98-107); Cholesterol 176 mg/dL (140-199); Estimated Glomerular Filt Rate > 60 mL/min (>60); Globulin 2.8 g/dL (1.7-4.1); Glucose 86 mg/dL (70-100); HDL Cholesterol 55 mg/dL (40-60); HEMOLYSIS < 15 (0-50); LDL Cholesterol Calculated 99 mg/dL (<100); Potassium 4.3 mmol/L (3.4-5.1); Sodium 137 mmol/L (137-145); Triglycerides 111 mg/dL (35-150)
== END ==
PROVIDERS: Family Provider Family Medicine; PCP Family Medicine; Referring Provider Family Medicine; Visit Provider Family Medicine
DX: Z00.00 Encounter for general adult medical examination without abnormal findings (principal); E03.9 Hypothyroidism, unspecified; E66.3 Overweight; R79.89 Other specified abnormal findings of blood chemistry; R79.9 Abnormal finding of blood chemistry, unspecified; Z13.220 Encounter for screening for lipoid disorders; Z68.25 Body mass index [BMI] 25.0-25.9, adult
CPT/HCPCS: 36415; 80053; 80061; 85025

== ENCOUNTER → 2024-08-11 15:11 | Outpatient (CLI) | payer OTHER, SELFPAY ==
--- NOTE | 2024-08-11 | DI.MG.S_ITS ---
BILATERAL DIGITAL SCREENING MAMMOGRAM 3D/2D WITH CAD: 08/11/2024 CLINICAL: Routine screening. Comparison is made to exams dated: 05/18/2023 mammogram, 12/01/2018 mammogram, 05/23/2012 mammogram, and 05/18/2011 mammogram - [facility]. The breasts are heterogeneously dense, which may obscure small masses (category c / 51-75% glandular tissue). Current study was also evaluated with a Computer Aided Detection (CAD) system. No significant masses, calcifications, or other findings are seen in either breast. There has been no significant interval change. IMPRESSION: NEGATIVE There is no mammographic evidence of malignancy. A 1 year screening mammogram is recommended. Based on the Tyrer Cuzick model (a risk assessment model) the patient's lifetime risk is 10.9% and her 10 year risk is 3.0%. According to the ACR, ACS, and NCCN guidelines, an annual breast MRI exam along with mammogram is recommended if the patient's lifetime risk is 20% or greater. This exam was interpreted at Station ID: [id number]. NOTE: For mammograms, a report in lay terms will be sent to the patient. Approximately 15% of breast malignancies will not be visualized mammographically. In the management of a palpable breast mass, a negative mammogram must not discourage biopsy of a clinically suspicious lesion. Electronically Signed By: Taylor Hurley M.D., Ph.D. sonam/shant:08/12/2024 08:14:36 letter sent: Normal Exam ACR BI-RADS Category 1: Negative
== END ==
PROVIDERS: Family Provider Family Medicine; PCP Family Medicine; Referring Provider Family Medicine; Visit Provider Family Medicine
DX: Z12.31 Encounter for screening mammogram for malignant neoplasm of breast (principal); R92.333 Mammographic heterogeneous density, bilateral breasts
CPT/HCPCS: 77063; 77067

== ENCOUNTER → 2024-11-10 09:03 | Outpatient (CLI) | payer OTHER, SELFPAY ==
[2024-11-10 09:54] LABS: Appearance Urine UA CLEAR; Bilirubin Urine UA NEGATIVE (NEGATIVE); Color Urine UA YELLOW; Glucose Urine UA NEGATIVE (Negative); Ketones Urine UA NEGATIVE (NEGATIVE); Leukocyte Esterase Urine UA NEGATIVE (NEGATIVE); Nitrite Urine UA NEGATIVE (Negative); Occult Blood Urine UA NEGATIVE (Negative); Protein Urine UA NEGATIVE (Negative); Specific Gravity Urine UA 1.025 (1.000-1.035); Urobilinogen Urine UA 0.2 E.U./dL (0.2)
[2024-11-10 09:55] LABS: pH Urine UA 5.5 (4.5-8.0)
[2024-11-10 09:59] LABS: Bacteria Urine None Seen; Culture Indicated Urine Cult Not Indicated; RBC Urine None Seen (0-5/HPF); Squamous Epithelial Cell Urine None Seen (0-5/HPF); Urine Volume 10mL (spun); WBC Urine None Seen (0-5/HPF)
[2024-11-10 10:04] LABS: Albumin 4.3 g/dL (3.5-5.0); BUN Creatinine Ratio 17.7 (6-22); Blood Urea Nitrogen 22 mg/dL (7-17); Calcium 9.2 mg/dL (8.4-10.2); Carbon Dioxide 25 mmol/L (22-32); Chloride 106 mmol/L (98-107); Estimated Glomerular Filt Rate 52 mL/min (>60); Glucose 93 mg/dL (70-100); HEMOLYSIS < 15 (0-50); Phosphorous 3.8 mg/dL (2.5-4.5); Potassium 5.1 mmol/L (3.4-5.1); Sodium 139 mmol/L (137-145)
[2024-11-12 12:36] LABS: Albumin 3.6 g/dL (2.9-4.4); Alpha-1-Globulin 0.2 g/dL (0.0-0.4); Alpha-2-Globulin 0.6 g/dL (0.4-1.0); Gamma Globulin 1.1 g/dL (0.4-1.8); Globulin Total 2.8 g/dL (2.2-3.9); Protein, Total 6.4 g/dL (6.0-8.5)
== END ==
PROVIDERS: Family Provider Family Medicine; PCP Family Medicine; Referring Provider Family Medicine; Visit Provider Family Medicine
DX: R79.89 Other specified abnormal findings of blood chemistry (principal); R79.9 Abnormal finding of blood chemistry, unspecified
CPT/HCPCS: 36415; 80069; 81001; 84155; 84165